=== PATIENT | female | born 1980 | race Caucasian/White ===

== ENCOUNTER 2019-12-28 11:40 | Emergency (ER) | payer BC ==
--- OUTSIDE RECORDS SUMMARY | 2019-12-28 11:45 | XMS REPORT | Continuity of Care Document ---
:1980 External Reference #:[id number] Author Name Rody Farmer NP Address [address] [place] [address] Care Team Providers Name Role Phone [facility] - Sleep Disorder Care Team Information Deliver Driver Diagnostic Pepe Becerril MD - Family Care Team Information Deliver Driver [phone] Medicine Problems Active Problems Provider Date Insomnia Pepe Johnson M.D. Onset: 04/12/2014 Social History Type Date Description Comments Sex Unknown Tobacco Use Start: Unknown Nonsmoker ETOH Use Occasional Tobacco Use Start: Unknown Patient has never smoked Smoking Status Reviewed: 12/05/19 Patient has never smoked Exercise Type/Frequency Does not exercise Allergies, Adverse Reactions, Alerts Description No Known Drug Allergies Medications Active Medications SIG Qnty Indications Ordering Provider Date Amoxicillin/Clavulana 1 by mouth twice 20tabs J01.90 Rody Newby 12/05/2019 te Potassium a day x 10 days KRISTYN Farmer 875-125mg Tablets Zolpidem Tartrate ER use one-two tabs 28tabs Pepe Yoder 08/11/2019 nightly as needed MD Jerrica 6.25mg Tablets ER insomnia Loratadine 1 by mouth once a Unknown 10mg day Capsules Pepcid 1 by mouth twice Unknown 20mg Tablets a day for stomach Excedrin Migraine 2 tablets every 8 Unknown hours as needed [phone] Tablets for headache Immunizations CPT Code Status Date Vaccine Lot # [id number] Given 07/27/2016 Influenza Vac, Quadriv[place], [place] [id number] Given 07/27/2015 Influenza Vac, Quadrivalent, Slit Virus, Im Vital Signs Date Vital Result Comment 12/05/2019 1:07pm BP Systolic 130 mmHg BP Diastolic 90 mmHg Heart Rate 78 /min Body Temperature 98.2 F Respiratory Rate 17 /min Weight 212.00 lb 08/11/2019 12:54pm BP Systolic 118 mmHg BP Diastolic 68 mmHg Heart Rate 87 /min Body Temperature 98.6 F Respiratory Rate 17 /min Height 64 inches 5'4" Weight 207.00 lb BMI (Body Mass Index) 35.5 kg/m2 Results Description No Information Available Procedures Description No Information Available Medical Devices Description No Information Available Encounters Type Date Location Provider Dx Diagnosis Office Visit 12/05/2019 Main Office Rody Newby J01.90 Acute sinusitis, 1:15p KRISTYN Farmer unspecified R51 Headache Office Visit 08/11/2019 1:20p Main Office Pepe Yoder F51.02 Adjustment MD Jerrica insomnia G47.39 Other sleep apnea M41.86 Other forms of scoliosis, lumbar region M54.5 Low back pain Assessments Date Code Description Provider 12/05/2019 J01.90 Acute sinusitis, unspecified Rody Farmer, KRISTYN 12/05/2019 R51 Headache Rody Farmer NP 08/11/2019 F51.02 Adjustment insomnia Pepe Becerril MD 08/11/2019 G47.39 Other sleep apnea Pepe Becerril MD 08/11/2019 M41.86 Other forms of scoliosis, lumbar region Pepe Becerril MD 08/11/2019 M54.5 Low back pain Pepe Becerril MD Plan of Treatment 12/05/2019 - Rody Farmer NPJ01.90 Acute sinusitis, unspecifiedNew Medication:Amoxicillin/Clavulanate Potassium 875-125 mg - 1 by mouth twice a day x 10 daysComments:Supportive care: 1) Make sure you are resting. This is the only way the body can take the energy it needs to heal itself. 2) Fluids, fluids, fluids! - Drink a lot of water or other caffeine free, clearliquids - Use a humidifier in your room at night or perform steam inhalations (20-30 mins ) three times a day- If tolerated, use a saline nasal spray to help clear out your sinuses 3) Cough and blow it out, the more you can get out of your system the better4) For throat pain: try using an adult dose ofchildren's Tylenol to help coat your throat and give you some pain relief. 5) Sleep with the head ofthe bed up6) Avoid cigarette smoke, caffeine, alcoholWe expect you to begin to feel better in 48-72 hours after starting antibiotic therapy, if you are not improving or begin to get worse, please contact the office to be seen again.R51 HeadacheComments:Increase Fluids RestMassage Hot PacksGentile ROM exercises Excedrine as directed ED precautions reviewedReturn if worsening/failure to improveAllComments:Medication Management Patient Understands medications he 's taking? Yes No Are there Barriers to Adherence? Yes No Has the patient been asked about herbal supplements and therapies, andOTC meds? Yes No Care Plan1. Patient has been queried about patient's goals/ preferences and functional/lifestyle goals at relevant visits. If relevant, describe: na2. Treatment goals as explained to the patient: above3. Are there barriers to meeting treatment goals? Yes No If Yes, please describe: comorbid conditions, polypharmacy, disease process 4. Self-Management goals as described to the patient: Yes NoAs always, we strongly encourage a healthy diet and making physical activity a part of your every day life. If you have questions about how or where to start, please contact the office. Functional Status Description No Information Available Mental Status Description No Information Available Referrals Refer to Reason for Referral Status Appt [facility] Physical Evaluate and treat. Order faxed. Scheduled Therapy [address] [facility] [address] [place] [address] [phone]
[2019-12-28 12:08] LABS: Influenza A Molecular POSITIVE (Negative)
--- NOTE | 2019-12-28 12:57 | ED ---
Influenza-Like Illness - HPI Summary HPI Summary: This pt is a 39 Y/O F presenting to [facility] with a CC of influenza-like symptoms that have been present since 12/27/2019 with myalgia, R ear pain, and sore throat that are all rated a 2/10 in severity. She states that she has had a possible fever but has not taken her temperature. She reports coughs, sore throat, and chest congestion since the onset. She denies any N/V, CP, chills, and headaches. She also denies any sick contacts. She has no pertinent PMHx. She has no aggravating or alleviating factors. - History of Current Complaint Chief Complaint: EDFluSymptoms Time Seen by Provider: 12/28/19 12:33 Hx Obtained From: Patient Onset/Duration: Sudden Onset, Lasting Days - 1, Still Present Severity: Mild Associated Signs & Symptoms: Negative - N/V, CP, chills, and headaches, Fever, Myalgia, Cough, Sore Throat, Nasal Congestion - Allergy/Home Medications Allergies/Adverse Reactions: Allergies Allergy/AdvReac Type Severity Reaction Status Date / Time No Known Allergies Allergy Verified 12/28/19 11:45 Home Medications: Home Medications Acetaminophen [Tylenol Extra Strength] 2 tab PO Q6HR PRN 12/28/19 [History Confirmed 12/28/19] Famotidine [Pepcid] 1 tab PO DAILY 12/28/19 [History Confirmed 12/28/19] Loratadine 1 tab PO DAILY 12/28/19 [History Confirmed 12/28/19] PMH/Surg Hx/FS Hx/Imm Hx Previously Healthy: Yes Respiratory History: Denies: Hx Seasonal Allergies Sensory History: Denies: Hx Contacts or Glasses Opthamlomology History: Denies: Hx Contacts or Glasses - Cancer History Hx Chemotherapy: No Hx Radiation Therapy: No - Surgical History Surgical History: None - Immunization History Immunizations Up to Date: Yes Infectious Disease History: No Infectious Disease History: Denies: Traveled Outside the [place] in Last 30 Days - Family History Known Family History: Negative: Hypertension - Social History Occupation: Employed Full-time Lives: With Family Alcohol Use: Rare Hx Substance Use: No Substance Use Type: Reports: None Hx Tobacco Use: No Smoking Status (MU): Never Smoked Tobacco Review of Systems Positive: Fever. Negative: Chills ENT: Other - R ear pain Positive: Sore Throat Negative: Chest Pain Positive: Cough Negative: Vomiting, Nausea Positive: Myalgia Negative: Headache All Other Systems Reviewed And Are Negative: Yes Physical Exam - Summary Physical Exam Summary: Constitutional: Well-developed, Well-nourished, Alert. (-) Distressed Skin: Warm, Dry HENT: Normocephalic; Atraumatic, Bilateral tympanic membranes are bulging Eyes: Conjunctiva normal Neck: Musculoskeletal ROM normal neck. (-) JVD, (-) Stridor, (-) Nuchal rigidity Cardio: Rhythm regular, rate tachycardic, Heart sounds normal; Intact distal pulses; Radial pulses are 2+ and symmetric. (-) Murmur Pulmonary/Chest wall: Effort normal. (-) Respiratory distress, (-) Wheezes, (-) Rales Abd: Soft, (-) tenderness, (-) Distension, (-) Guarding, (-) Rebound Musculoskeletal: (-) Edema Lymph: (-) Cervical adenopathy Neuro: Alert, Oriented x3 Psych: Mood and affect Normal Triage Information Reviewed: Yes Vital Signs On Initial Exam: Initial Vitals Temp Pulse Resp BP Pulse Ox 99.1 F 116 20 195/90 98 12/28/19 11:40 12/28/19 11:40 12/28/19 11:40 12/28/19 11:40 12/28/19 11:40 Vital Signs Reviewed: Yes Procedures - Sedation Patient Received Moderate/Deep Sedation with Procedure: No Diagnostics - Vital Signs Vital Signs Temp Pulse Resp BP Pulse Ox 12/28/19 11:40 99.1 F 116 20 195/90 98 - Laboratory Lab Results: Lab Results 12/28/19 Range/Units 11:48 Influenza A (Rapid) Positive H (Negative) Influenza B (Rapid) Not Reportable Lab Statement: Any lab studies that have been ordered have been reviewed, and results considered in the medical decision making process. Flu Symptom Course/Dx - Course Course Of Treatment: 39 y/o F presented with flulike symptoms. Flu A+. Patient well appearing, with stable vitals. Patient does not have increased work of breathing, productive cough to suggest pneumonia. No headache, neck pain or nuchal rigidity. Tolerating by mouth. Given tamiflu Rx. Plan for discharge w symptomatic control and will return for worsening symptoms. Regarding ear pain, has bulging of bilateral TMs suspect 2/2 viral syndrome. - Diagnoses Provider Diagnoses: Influenza Discharge ED - Sign-Out/Discharge Documenting (check all that apply): Patient Departure - discharge - Discharge Plan Condition: Stable Disposition: HOME Prescriptions: Oseltamivir CAP* [Tamiflu CAP*] 75 mg PO BID 6 Days #10 cap Patient Education Materials: Influenza (ED) Referrals: Pepe Johnson MD [Primary Care Provider] - Additional Instructions: You were seen in the emergency department for flu like symptoms, you are positive for the flu. Please drink fluids, take Motrin or Tylenol for pain. Please follow up with your primary care doctor in next 2-3 days and return to emergency department for worsening or concerning symptoms. It was a pleasure taking care of you today. - Billing Disposition and Condition Condition: STABLE Disposition: Home - Attestation Statements Document Initiated by Roc: Yes Documenting Scribe: Vignesh Rodriguez Provider For Whom Roc is Documenting (Include Credential): Ender Altamirano MD Scribe Attestation: Vignesh Ayala, scribed for Ender Altamirano MD on 12/28/19 at 1306. Scribe Documentation Reviewed: Yes Provider Attestation: The documentation as recorded by the Vignesh conti accurately reflects the service I personally performed and the decisions made by Ender schaefer MD Status of Scribe Document: Viewed
[2019-12-28 13:24] VITALS: BP 126/85
== END 2019-12-28 13:23 | disposition home or self-care (01) ==
LOC: ED 11:40
DX: J11.1 Influenza due to unidentified influenza virus with other respiratory manifestations (principal); Z79.899 Other long term (current) drug therapy
CPT/HCPCS: 99282